=== PATIENT | male | born 1960 | race Two or more races ===

== ENCOUNTER 2024-11-04 18:01 | Emergency (ER) | payer OTHER ==
[~2024-11-04] VITALS: Ht 180.3 cm; Wt 85.0 kg
[2024-11-04] MEDS: fentaNYL CITRATE 100 MCG/2 ML VL IM ONE (20:14)
--- NOTE | 2024-11-04 20:19 | ED.PDOC ---
History of Present Illness HPI Comments 63 y/o M, with a history of gout, arthritis, and lymphoma, is BIBA with c/o generalized joint pain, today. Patient endorses on onset of "gout flare up" for the past 2x days after starting chemotherapy on 11/02/24. He reports on being advised to expect a gout flare up. At time of assessment, patient reports on being unable to tolerate pain. He also states on having a recent colonoscopy but no abdominal pain. He denies any additional associated symptoms at this time. Chief Complaint: Body Pain Time Seen by MD: 19:15 Primary Care Provider: LISSET Reviewed Notes: Nurses Notes, Finished Stock Inspector Notes, Medications, Allergies Allergies: Coded Allergies: NO KNOWN ALLERGIES (Unverified , 11/04/24) Information Source: Patient, Emergency Med Personnel Mode of Arrival: EMS Past Medical History PAST MEDICAL HISTORY: Arthritis, Cancer (lymphoma on chemotherapy ), Gout Surgical History: Denies all surgeries Family History Family History: Reviewed,noncontributory to illness, No family hx of Cancer, No family hx of DM, No family hx of Heart davion, No family hx of HTN, No family hx ofKidney davion, No family hx of Liver davion, No family hx of Lung davion, No family hx of Stroke Social History Smoker: Non-Smoker Alcohol: Denies ETOH Use Drugs: Denies Drug Use Constitutional: reports: fever EENTM: denies: blurred vision, double vision, ear bleeding, ear discharge, ear drainage, ear pain, ear ringing, eye pain, eye redness, hearing loss, mouth pain, mouth swelling, nasal discharge, nose bleeding, nose congestion, nose pain, photophobia, tearing, throat pain, throat swelling, voice changes, others Respiratory: denies: cough, hemoptysis, orthopnea, SOB at rest, shortness of breath, SOB with excertion, stridor, wheezing, others Cardiovascular: denies: chest pain, dizzy spells, diaphoresis, Dyspnea on exertion, edema, irregular heart beat, left arm pain, lightheadedness, palpitations, PND, syncope, others Gastrointestinal: denies: abdomen distended, abdominal pain, blood streaked bowels, constipated, diarrhea, dysphagia, difficulty swallowing, hematemesis, melena, nausea, poor appetite, poor fluid intake, rectal bleeding, rectal pain, vomiting, others Genitourinary: denies: burning, dysuria, flank pain, frequency, hematuria, incontinence, penile discharge, penile sore, pain, testicle pain, testicle swelling, urgency, others Neurological: denies: dizziness, fainting, headache, left sided numbness, left sided weakness, numbness, paresthesia, pre-existing deficit, right sided numbness, right sided weakness, seizure, speech problems, tingling, tremors, weakness, others Musculoskeletal: reports: gout, joint pain, joint swelling; denies: back pain, muscle pain, muscle stiffness, neck pain, others Integumetry: denies: bruises, change in color, change in hair/nails, dryness, laceration, lesions, lumps, rash, wounds, others Allergic/Immunocompromised: denies: Difficulty Healing, Frequent Infections, Hives, Itching, others Hematologic/Lymphatic: denies: anemia, blood clots, easy bleeding, easy bruisi ng, swollen glands, others Endocrine: denies: excessive hunger, excessive sweating, excessive thirst, exce ssive urination, flushing, intolerance to cold, intolerance to heat, unexplained weight gain, unexplained weight loss, others Psychiatric: denies: anxiety, bipolar disorder, depression, hopeless, panic disorder, schizophrenia, sleepless, suicidal, others All Other Systems: Reviewed and Negative (Comprehensive systems review obtained and negative except for what is stated in the HPI.) Physical Exam General Appearance: No Apparent Distress, Normal HEENT: Normal ENT Inspection, Pharynx Normal, TMs Normal Neck: Full Range of Motion, Non-Tender, Normal, Normal Inspection Respiratory: Chest Non-Tender, Lungs Clear, No Accessory Muscle Use, No Respiratory Distress, Normal Breath Sounds Cardiovascular: No Edema, No JVD, No Murmur, No Gallop, Normal Peripheral Pulses, Regular Rate/Rhythm Breast Exam: Deferred Gastrointestinal: No Organomegaly, Non Tender, No Pulsatile Mass, Normal Bowel Sounds, Soft Genitalia: Deferred Pelvic: Deferred Rectal: Deferred Extremities: No calf tenderness, Normal capillary refill, Normal range of motion, No pedal edema, Other (left pinky interphalangeal, right knee, and right ankle joint swelling, redness, and tendernes) Musculoskeletal : Apperance: Normal Neurologic: Alert, court reporter II-XII nml as Tested, No Motor Deficits, Normal Affect, Normal Mood, No Sensory Deficits Cerebellar Function: Normal Reflexes: Normal Skin: Dry, Normal Color, Warm Lymphatic: No Adenopathy Was a procedure done? Was a procedure done?: No Differential Dx Considerations may include: gout flare, chemotherapy adverse effect, arthritis, among others, sepsis, septic joints X-Ray, Labs, Meds, VS Vital Signs Date Time Temp Pulse Resp B/P (MAP) Pulse Ox O2 Delivery O2 Flow Rate FiO2 11/04/24 20:52 74 18 97 Room Air* 0 21 11/04/24 20:52 100.4 74 18 135/84 (101) 97 100.4 11/04/24 20:14 137/87 11/04/24 18:38 99.0 108 18 161/89 (113) 96 99.0 Lab Test 11/04/24 19:35 Range/Units White Blood Count 17.1 H 4.4-10.8 10^3/uL Red Blood Count 4.58 4.5-5.90 10^6/uL Hemoglobin 14.3 13.5-17.5 g/dL Hematocrit 41.7 41.0-53.0 % Mean Corpuscular Volume 91.0 80.0-100.0 fL Mean Corpuscular Hemoglobin 31.2 28.0-32.0 pg Mean Corpuscular Hemoglobin Concent 34.3 32.0-36.0 g/dL Red Cell Distribution Width 13.2 11.8-14.3 % Platelet Count 243 140-450 10^3/uL Mean Platelet Volume 9.2 6.9-10.8 fL Neutrophils (%) (Auto) 81.6 H 37.0-80.0 % Lymphocytes (%) (Auto) 1.4 L 10.0-50.0 % Monocytes (%) (Auto) 15.4 H 0.0-12.0 % Eosinophils (%) (Auto) 0.1 0.0-7.0 % Basophils (%) (Auto) 1.5 0.0-2.0 % Neutrophils # (Auto) 13.9 H 1.6-8.6 10 ^3/uL Lymphocytes # (Auto) 0.2 L 0.4-5.4 10 ^3/uL Monocytes # (Auto) 2.6 H 0-1.3 10 ^3/uL Eosinophils # (Auto) 0 0-0.8 10 ^3/uL Basophils # (Auto) 0.3 H 0-0.2 10 ^3/uL Nucleated Red Blood Cells 0.0 % Sodium Level 132 L 136-145 mmol/L Potassium Level 4.2 3.5-5.1 mmol/L Chloride Level 100 98-107 mmol/L Carbon Dioxide Level 23 20-31 mmol/L Anion Gap 9 5-15 Blood Urea Nitrogen 12 9-23 mg/dL Creatinine 1.16 0.700-1.30 mg/dL Glomerular Filtration Rate Calc 71 >90 mL/min BUN/Creatinine Ratio 10.3 10.0-20.0 Serum Glucose 133 H 74-106 mg/dL Lactic Acid Level Pending Uric Acid 4.7 3.7-9.2 mg/dL Calcium Level 9.8 8.7-10.4 mg/dL Troponin I High Sensitivity 4 </=54 ng/L Current Medications Medications (Trade) Dose Ordered Sig/Deshawn Route Start Time Stop Time Status Last Admin Fentanyl Citrate 12.5 mcg ONCE ONCE IM 11/04/24 19:15 11/04/24 19:18 DC 11/04/24 20:14 Time of 1ST Reevaluation: 19:45 Reevaluation 1ST: Unchanged Time of 2ND Reevaluation: 21:30 Reevaluation 2ND: Unchanged Patient Education/Counseling: Diagnosis, Treatment, Prognosis, Need For Follow Up Family Education/Counseling: Diagnosis, Treatment, Prognosis, Need For Follow Up Comments pt meets sepsis criteria, so sepsis orders are placed. however, he was warned that he may have a gouty flare up from the chemo. he is stable. i have started him on pain control and antibiotics. he will be transferred to [place]. i spoke to Dr Rahman, who accepted the transfer #[id number] Sepsis Sepsis Reasesment Focused Exam Sepsis focused exam: focus exam completed (cap refill<2 secs, skin with good turgor, alert, oriented, vss stable. HR in tyhe 70s), time: (2129) Departure 1 Departure Time of Disposition: 21:32 Impression: Primary Impression: Sepsis Qualified Codes: A41.9 - Sepsis, unspecified organism Additional Impressions: Arthritis Gout Disposition: 02 SHORT TERM HOSPITAL Condition: Stable Discharged With: Self, Relative Critical Care Note Critical Care Time?: Yes (55 min-critical care time only) Critical care comment: Due to concerns for patients condition deteriorating, the care required my highest level of attention and readiness to intervene. I assessed the patient, reviewed the medical records, ordered the appropriate tests and treatments, then reassessed for results and responsiveness. I communicated with medical personnel and consultants and formulated a plan of care. Total critical care time excludes any procedures Stability Stability form required: No Heart Score Heart Score: Heart Score Response (Comments) Value History N/A 0 EKG N/A 0 Age N/A 0 Risk Factors N/A 0 Troponin N/A 0 Total 0 I personally scribed for MARISSA CAR MD ([email or web address]) on 11/04/24 at 20:19. Electronically submitted by Eddie Valenzuela ([email or web address]). MARISSA CAR MD Nov 04, 2024 20:19
[2024-11-04 20:42] LABS: Chloride 100 mmol/L (98-107); Potassium 4.2 mmol/L (3.5-5.1)
[2024-11-04 20:43] LABS: Anion Gap 9 (5-15); Calcium 9.8 mg/dL (8.7-10.4); Carbon Dioxide 23 mmol/L (20-31)
[2024-11-04 20:47] LABS: Uric Acid 4.7 mg/dL (3.7-9.2)
[2024-11-04 20:48] LABS: BUN/Creatinine Ratio 10.3 (10.0-20.0); Blood Urea Nitrogen 12 mg/dL (9-23)
[2024-11-04 20:49] LABS: Glucose 133 mg/dL (74-106); Sodium 132 mmol/L (136-145)
[2024-11-04 20:52] VITALS: PULSE 74; RESP 18; O2SAT 97
[2024-11-04 20:57] LABS: Basophils # (auto) 0.3 10 ^3/uL (0-0.2); Basophils % (auto) 1.5 % (0.0-2.0); Eosinophils # (auto) 0 10 ^3/uL (0-0.8); Eosinophils % (auto) 0.1 % (0.0-7.0); Hematocrit 41.7 % (41.0-53.0); Hemoglobin 14.3 g/dL (13.5-17.5); Lymphocytes # (auto) 0.2 10 ^3/uL (0.4-5.4); Lymphocytes % (auto) 1.4 % (10.0-50.0); Mean Corpuscular Hemoglobin 31.2 pg (28.0-32.0); Mean Corpuscular Hgb Conc. 34.3 g/dL (32.0-36.0); Monocytes # (auto) 2.6 10 ^3/uL (0-1.3); Monocytes % (auto) 15.4 % (0.0-12.0); Neutrophils # (auto) 13.9 10 ^3/uL (1.6-8.6); Neutrophils % (auto) 81.6 % (37.0-80.0); Platelet Count (auto) 243 10^3/uL (140-450); Red Blood Cells 4.58 10^6/uL (4.5-5.90); Red Cell Distribution Width 13.2 % (11.8-14.3); White Blood Cell 17.1 10^3/uL (4.4-10.8)
[2024-11-04] MEDS: SODIUM CHLORIDE 0.9% 2,250 ML IV ONE (22:00)
[2024-11-04] MEDS: VANCOMYCIN 1GM/250ML KIT 200 ML IV SCH (22:00)
[2024-11-04] MEDS: PIPERACILLIN-TAZO 4.5GM 100 ML IV SCH (22:57)
[2024-11-05 01:05] VITALS: BP 130/82; PULSE 72; RESP 18; TEMP 99.4; O2SAT 97
== END 2024-11-05 01:36 | disposition short-term general hospital (02) ==
LOC: EDBD 18:01 → ER 18:01
DX: A41.9 Sepsis, unspecified organism (principal); M10.9 Gout, unspecified; M19.90 Unspecified osteoarthritis, unspecified site; Z85.72 Personal history of non-Hodgkin lymphomas
CPT/HCPCS: 36415; 80048; 83605; 84484; 84550; 85025; 87040; 96365; 96366; 96368; 96372; 99291; J2543; J3010; J3370